=== PATIENT | male | born 1955 | race American Indian/Alaskan Native ===

== ENCOUNTER 2018-04-01 15:35 | Emergency (ER) | payer MEDICARE ==
[2018-04-01 15:35] VITALS: BMI 24.4
[2018-04-01 15:56] VITALS: TEMP 97.3
[2018-04-01 16:56] LABS: BASO # 0.1 K/uL (0.0-0.2); BASO % 1.1 % (0.0-2.0); EOS # 0.1 K/uL (0.0-0.7); EOS % 1.7 % (0.0-4.0); HEMOGLOBIN 12.8 g/dL (12.0-18.0); LYMPH # 1.5 K/uL (1.0-4.3); LYMPH % 28.3 % (20.0-40.0); MEAN CELL VOLUME 91.6 fL (80.0-94.0); MEAN CORPUSCULAR HEMOGLOBIN 29.8 pg (27.0-31.0); MEAN CORPUSCULAR HGB CONC 32.6 g/dL (33.0-37.0); MEAN PLATELET VOLUME 7.7 fL (7.2-11.7); MONO # 0.3 K/uL (0.0-0.8); MONO % 5.6 % (0.0-10.0); NEUT # 3.4 K/uL (1.8-7.0); NEUT % 63.3 % (50.0-75.0); NRBC % 0.1 % (0.0-2.0); RBC 4.3 Mil/uL (4.40-5.90); WHITE BLOOD COUNT 5.4 K/uL (4.8-10.8)
[2018-04-01 17:04] LABS: INR 1.1; PARTIAL THROMBOPLASTIN TIME 23 SECONDS (21-34)
[2018-04-01 17:09] LABS: D DIMER < 200 ng/mlDDU (0-243)
[2018-04-01 17:32] LABS: ALB/GLOB RATIO 1.2 (1.0-2.1); BLOOD UREA NITROGEN 20 mg/dL (9-20); CALCIUM 9.5 mg/dl (8.6-10.4); GFR NON-AFRICAN AMERICAN > 60
[2018-04-01 17:41] LABS: B-TYPE NATRIURETIC PEPTIDE 29.2 pg/mL (0-900)
--- NOTE | 2018-04-01 17:44 | RAD ---
HISTORY: SOB COMPARISON: Lung screening CT performed 10/09/17 TECHNIQUE: Chest, one view. FINDINGS: LUNGS: Emphysematous changes. Upper lobe bulla. Mild basilar atelectasis. Right middle lobe nodule seen on CT performed 10/09/17 not well appreciated by x-ray. Please note that chest x-ray has limited sensitivity for the detection of pulmonary masses. PLEURA: No significant pleural effusion identified. No definite pneumothorax . CARDIOVASCULAR: Heart size appears within normal limits. No significant atherosclerotic calcification present. OSSEOUS STRUCTURES: No acute osseous abnormality identified. VISUALIZED UPPER ABDOMEN: Unremarkable. OTHER FINDINGS: None. IMPRESSION: Emphysematous changes. Upper lobe bulla. Mild basilar atelectasis. Right middle lobe nodule seen on CT performed 10/09/17 not well appreciated by x-ray.
[2018-04-01 17:48] LABS: SQUAMOUS EPITHIAL < 1 /hpf (0-5); URINE BILIRUBIN NEGATIVE (NEGATIVE); URINE BLOOD NEGATIVE (NEGATIVE); URINE CLARITY Clear (Clear); URINE COLOR Yellow (YELLOW); URINE GLUCOSE (UA) NORMAL (Normal); URINE LEUKOCYTE ESTERASE NEG Leu/uL (Negative); URINE PROTEIN NEGATIVE (NEGATIVE); URINE UROBILINOGEN NORMAL mg/dL (0.2-1.0)
[2018-04-01 17:53] LABS: ALT/SGPT 20 U/L (21-72); AST/SGOT 22 U/L (17-59)
[2018-04-01] MEDS ORDERED: Iodixanol 320 MG/ML 100 ML BOTTLE IV ONE (17:58)
--- NOTE | 2018-04-01 18:23 | C.PDOC ---
History Of Present Illness 63 year old male presents to the ED BIBA complaining of lower back pain that shoots up his spine. Patient was initially ambulatory in the ED, coherent and not in pain. When I went to evaluate patient, he was unresponsive with deviated gaze, pinpoint pupils, and unresponsive to sternal rub. Finger stick was done, blood glucose was 144. As patient's pockets were checked, patient became conversant and responsive. He is currently on a strict Percocet regimen and sees multiple pain managements. Time Seen by Provider: 04/01/18 16:33 Chief Complaint (Nursing): Back Pain History Per: Patient History/Exam Limitations: no limitations Current Symptoms Are (Timing): Still Present Quality Of Discomfort: "Pain" Previous Symptoms: Back Pain Associated Symptoms: None Past Medical History Reviewed: Historical Data, Nursing Documentation, Vital Signs Vital Signs: Last Vital Signs Temp 97.3 F L 04/01/18 15:52 Pulse 73 04/01/18 15:52 Resp 34 H 04/01/18 15:52 BP 119/68 04/01/18 15:52 Pulse Ox 100 04/01/18 15:52 - Medical History PMH: Chronic Pain (+Left leg pain) Surgical History: No Surg Hx - [facility] Procedures ENDO RECTUM POLYPECTOMY (09/04/12) Family History: States: No Known Family Hx - Social History Hx Alcohol Use: Yes Hx Substance Use: No - Immunization History Hx Tetanus Toxoid Vaccination: No Hx Influenza Vaccination: No Hx Pneumococcal Vaccination: No Review Of Systems Except As Marked, All Systems Reviewed And Found Negative. 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 ), left: Normal Inspection Nose: Normal Oral Mucosa: Moist Neck: Supple Chest: Symmetrical Cardiovascular: Rhythm Regular Respiratory: Normal Breath Sounds, No Rales, No Rhonchi, No Wheezing Gastrointestinal/Abdominal: Soft, No Tenderness Extremity: Normal ROM Neurological/Psych: Oriented x3, Normal Speech, Normal Motor, Normal Sensation, Normal Reflexes Gait: Steady ED Course And Treatment - Laboratory Results Result Diagrams: 04/01/18 15:50 04/01/18 15:50 O2 Sat by Pulse Oximetry: 100 (RA) Pulse Ox Interpretation: Normal - Other Rad CXR X-Ray: Viewed By Me, Read By Radiologist Interpretation: IMPRESSION: Emphysematous changes. Upper lobe bulla. Mild basilar atelectasis. Right middle lobe nodule seen on CT performed 10/09/17 not well appreciated by x-ray. Medical Decision Making Medical Decision Making: Plan - EKG - Motrin 800mg PO - Bloodwork - CT head - CT chest/abd/pelvis 15 minutes after initial evaluation, patient is comfortable, argumentative, and requesting more pain medicine. [address] Holguin who has seen patient before. No radiological studies of LS spine area noted @ or [facility] radiology studies chronic lower back pain [facility] :120 tabs Sept 120 tabs Oct 184 tabs Nov 90 tabs Suspect Narc abuse/chronic pain of ? etiology normal labs here, d-dimer neg prior h/o prostate CA resolved small lung nodule on recent study, pending bx 05/02, normal CXR Defer to Chronic pain for further studies and meds Disposition Doctor Will See Patient In The: Office Counseled Patient/Family Regarding: Studies Performed, Diagnosis - Disposition Referrals: [email or web address] [Outside] [facility] [Outside] [facility] [Outside] [email or web address] [Outside] Benton Holguin MD [Staff Provider] - Maxx Anderson MD [Staff Provider] - Disposition: HOME/ ROUTINE Disposition Time: 18:28 Condition: GOOD Additional Instructions: avoid narcotics overdoses carry Narcan at all times- advise people you carry it and may spray up your nose to reverse the effects of narcotics overdose Seek refills of your meds with your chronic pain specialists Call for an appt. Prescriptions: Naloxone HCl [Narcan] 4 mg NS ONCE PRN #1 spray PRN Reason: narcotics overdose Instructions: Chronic Pain (DC), Low Back Pain (DC) Forms: [email or web address] (Thai) - Clinical Impression Clinical Impression: Low back pain, Narcotic abuse, continuous - Scribe Statement The provider has reviewed the documentation as recorded by the Dayton Chowdary All medical record entries made by the Dayton were at my direction and personally dictated by me. I have reviewed the chart and agree that the record accurately reflects my personal performance of the history, physical exam, medical decision making, and the department course for this patient. I have also personally directed, reviewed, and agree with the discharge instructions and disposition.
[2018-04-01 18:32] VITALS: BP 135/82; PULSE 69
[2018-04-01 18:33] VITALS: RESP 26
[2018-04-01 18:41] LABS: BARBITURATES, UR NEGATIVE (NEGATIVE); BENZODIAZEPINES, UR NEGATIVE (NEGATIVE); OPIATES, UR NEGATIVE (NEGATIVE); PHENCYCLIDINE, UR NEGATIVE (NEGATIVE)
[2018-04-01 19:27] VITALS: O2SAT 100
--- NOTE | 2018-04-03 12:11 | CARD ---
APPROVED REPORT Date of service: 04/01/2018 EKG Measurement Heart [id number] <Conclusion> Normal sinus rhythm Normal ECG
== END 2018-04-01 19:13 | disposition home or self-care (01) ==
LOC: C.ER 15:35
DX: M54.5 Low back pain (principal); F19.10 Other psychoactive substance abuse, uncomplicated
CPT/HCPCS: 71045; 80053; 81001; 82948; 83880; 84484; 85025; 85378; 85610; 85730; 93005; 99284; G0480

== ENCOUNTER 2018-04-29 08:38 | Day surgery (SDC) | payer MEDICARE ==
[2018-04-29] MEDS ORDERED: Midazolam 2 MG/2 ML VIAL ONE (10:19)
[2018-04-29] MEDS ORDERED: Lidocaine 2% MPF (5 ml) Inj ONE (10:19)
--- NOTE | 2018-04-29 10:49 | PCM.SURG1 ---
Surgeon's Initial Post Op Note - Surgeon's Notes Surgeon: Roosevelt Otero MD Surgical Physician Assistant: NONE Type of Anesthesia: Moderate Sedation{RN} Pre-Operative Diagnosis: Emphysema, right lung nodule Operative Findings: CT showed severe emphysema and a 2 cm right lung nodule. Post-Operative Diagnosis: Emphysema, right lung nodule Operation Performed: CT guided right lung biopsy. SIngle 20-g core specimen obtained. Specimen/Specimens Removed: 20 g core x 1 Estimated Blood Loss: EBL {In ML}: 0 Post-Op Condition: Fair Date of Surgery/Procedure: 04/29/18 Time of Surgery/Procedure: 10:45
--- NOTE | 2018-04-29 10:51 | CP.SDSHP ---
Same Day Surgery H & P - History Proposed Procedure: CT guided lung nodule biopsy Pre-Op Diagnosis: Right lung nodule - Allergies Allergies: Allergies No Known Allergies Allergy (Verified 05/22/15 11:02) - Physical Exam Mental Status: Alert & Oriented x3 Neuro: WNL Heart: WNL Lungs: WNL - Impression Impression: Pt with severe emphysema and small right lung nodule. Plan CT buided biopsy. Informed consent and risk of pneumothorax discussed with possible chest tube placement. Pt. Evaluated Today:Candidate for Anesthesia & Procedure: Yes (ASA 3 Malampati 3) Short Stay Discharge - Short Stay Discharge Admitting Diagnosis/Reason for Visit: LUNG MASS Disposition: HOME/ ROUTINE
--- NOTE | 2018-04-29 11:49 | RAD ---
Date of service: 04/29/2018 PROCEDURE: CHEST RADIOGRAPH, 1 VIEW HISTORY: Status post right lung nodule biopsy COMPARISON: None available. FINDINGS: LUNGS: Emphysematous changes right and left lungs with multiple bulla seen. PLEURA: No pneumothorax or pleural fluid seen. CARDIOVASCULAR: No aortic atherosclerotic calcification present. Normal. OSSEOUS STRUCTURES: No significant abnormalities. VISUALIZED UPPER ABDOMEN: Normal. OTHER FINDINGS: None. IMPRESSION: Pneumothorax following right lung nodule biopsy.
--- NOTE | 2018-04-29 11:51 | CT ---
PROCEDURE: Date of procedure: 04/29/2018 Procedure: 1. CT-guided lung mass biopsy, CPT [address] Guidance for biopsy, [address] Radiation: 501.74 mGy-cm Medications: The patient was sedated by anesthesiologist along with physiologic monitoring. HISTORY: Right upper lobe lung nodule TECHNIQUE: Following informed consent, the Pt's chest was marked. The Pt was placed prone on the CT table and procedure time out was performed. A noncontrast CT scan was performed. Noncontrast CT scan confirmed the presence of a 2 cm nodule. A skin localizer was placed on the patient's right back and a repeat CT scan was performed. The skin was marked, prepped, and draped in the usual sterile fashion. After the skin was anesthetized with lidocaine and the patient sedated by the anesthesiologist, a 20 gauge core needle was advanced percutaneously under direct CT guidance into the mass. Upon confirmation of needle position, one 20-gauge core specimens were obtained and sent for routine pathology. The needle was removed and a xeroform dressing was applied. A post biopsy CT scan showed no pneumothorax. IMPRESSION: CT guided core biopsy right lung nodule.
[2018-04-29] MEDS ORDERED: NALOXONE HCL 4 MG NS PRN (16:58)
[2018-04-29] MEDS ORDERED: Oxycodone/Acetaminophen 5/325 mg Tab PO SCH (17:15)
[2018-04-29] MEDS ORDERED: SULINDAC 200 MG PO SCH (22:00)
[2018-04-30] MEDS ORDERED: METAXALONE 800 MG PO SCH (10:00)
== END 2018-04-29 17:03 | disposition home or self-care (01) ==
LOC: C.SPRAD 08:38
PROVIDERS: ATTEND Radiology Vascular & Interventional Radiology
DX: R91.8 Other nonspecific abnormal finding of lung field (principal)
CPT/HCPCS: 32405; 71045; 88305; J2250; J3010

== ENCOUNTER 2018-06-25 17:05 | Observation (INO) | payer MEDICARE ==
[2018-06-25 17:34] VITALS: BMI 19.5
[2018-06-25] MEDS ORDERED: Aspirin 325 mg EC Tablets PO STA (17:43)
[2018-06-25] MEDS ORDERED: Sodium Chloride 0.9% 1,000 ML IV ONE (17:43)
[2018-06-25 18:07] LABS: BASO % 0.7 % (0.0-2.0); EOS # 0.1 K/uL (0.0-0.7); EOS % 1.2 % (0.0-4.0); HEMOGLOBIN 13.3 g/dL (12.0-18.0); LYMPH # 1.4 K/uL (1.0-4.3); LYMPH % 19.9 % (20.0-40.0); MEAN CELL VOLUME 90.2 fL (80.0-94.0); MEAN CORPUSCULAR HGB CONC 32.2 g/dL (33.0-37.0); MEAN PLATELET VOLUME 8.3 fL (7.2-11.7); MONO # 0.5 K/uL (0.0-0.8); NEUT # 4.9 K/uL (1.8-7.0); NEUT % 71.2 % (50.0-75.0); RBC 4.57 Mil/uL (4.40-5.90); RED CELL DISTRIBUTION WIDTH 14.9 % (11.5-14.5); WHITE BLOOD COUNT 6.8 K/uL (4.8-10.8)
[2018-06-25 18:13] LABS: INR 1.1; PARTIAL THROMBOPLASTIN TIME 33 SECONDS (21-34); PROTHROMBIN TIME 12.3 SECONDS (9.7-12.2)
[2018-06-25 18:16] LABS: D DIMER < 200 ng/mlDDU (0-243)
[2018-06-25] MEDS ORDERED: Aspirin 325 mg EC Tablets PO ONE (18:16)
[2018-06-25 18:23] LABS: ALB/GLOB RATIO 1.2 (1.0-2.1); ALBUMIN 4.5 g/dL (3.5-5.0); ALT/SGPT 16 U/L (21-72); AST/SGOT 33 U/L (17-59); BLOOD UREA NITROGEN 21 mg/dL (9-20); CALCIUM 10.1 mg/dl (8.6-10.4); GFR NON-AFRICAN AMERICAN > 60
[2018-06-25 18:35] LABS: B-TYPE NATRIURETIC PEPTIDE 84.6 pg/mL (0-900)
--- NOTE | 2018-06-25 18:52 | C.PDOC ---
History Of Present Illness 63 year old male presents to the ED for evaluation of a near syncopal episode. Patient reports he was at his PT for back pain when he had a near syncopal episode. Patient with past history of opioid abuse, OD symptoms even in the ED. Patient denies fever, chills, CP, SOB at this time. Time Seen by Provider: 06/25/18 17:43 Chief Complaint (Nursing): Syncope History Per: Patient History/Exam Limitations: no limitations Onset/Duration Of Symptoms: Hrs Current Symptoms Are (Timing): Still Present Number Of Syncopal Episodes: 1 Associated Symptoms Preceding Syncopal Episode: No Predromal Symptoms (Sudden Onset) Seizure Or Post-ictal Symptoms: None Fall Associated With With Symptoms: No Severity: None Recent travel outside of the [place]: No Additional History Per: Patient Past Medical History Reviewed: Historical Data, Nursing Documentation, Vital Signs Vital Signs: Last Vital Signs Temp 98.0 F 06/25/18 17:34 Pulse 70 06/25/18 17:34 Resp 18 06/25/18 17:34 BP 120/76 06/25/18 17:34 Pulse Ox 95 06/25/18 17:34 - Medical History PMH: Chronic Pain (+Left leg pain) Other PMH: narcotics abuse Surgical History: No Surg Hx - [facility] Procedures ENDO RECTUM POLYPECTOMY (09/04/12) Family History: States: Unknown Family Hx - Social History Hx Alcohol Use: Yes Hx Substance Use: No - Immunization History Hx Tetanus Toxoid Vaccination: No Hx Influenza Vaccination: No Hx Pneumococcal Vaccination: No Review Of Systems Constitutional: Negative for: Fever, Chills Eyes: Negative for: Vision Change Cardiovascular: Negative for: Chest Pain, Palpitations Respiratory: Negative for: Shortness of Breath Gastrointestinal: Negative for: Nausea, Vomiting, Abdominal Pain Skin: Negative for: Rash Neurological: Negative for: Weakness, Numbness, Headache, Dizziness Physical Exam - Physical Exam Appears: Non-toxic, No Acute Distress, Other (thin black male ) Skin: Normal Color, Warm, Dry Head: Atraumatic, Normacephalic Eye(s): bilateral: Normal Inspection Neck: Normal ROM, Supple Chest: Symmetrical Cardiovascular: Rhythm Regular Respiratory: Normal Breath Sounds, No Rales, No Rhonchi, No Wheezing Gastrointestinal/Abdominal: Soft, No Tenderness, No Guarding, No Rebound Extremity: Normal ROM, No Tenderness, No Swelling Neurological/Psych: Oriented x3, Normal Speech, Normal Cognition Gait: Steady ED Course And Treatment - Laboratory Results Result Diagrams: 06/25/18 17:55 06/25/18 17:55 Lab Results: PT 12.3 SECONDS (9.7-12.2) H 06/25/18 17:55 INR 1.1 06/25/18 17:55 APTT 33 SECONDS (21-34) 06/25/18 17:55 D-Dimer, Quantitative < 200 ng/mlDDU (0-243) 06/25/18 17:55 Troponin I < 0.0120 ng/mL (0.00-0.120) 06/25/18 17:55 NT-Pro-B Natriuret Pep 84.6 pg/mL (0-900) 06/25/18 17:55 Total Bilirubin 0.8 mg/dL (0.2-1.3) 06/25/18 17:55 AST 33 U/L (17-59) 06/25/18 17:55 ALT 16 U/L (21-72) L 06/25/18 17:55 Alkaline Phosphatase 107 U/L (38-126) 06/25/18 17:55 Total Protein 8.2 g/dL (6.3-8.3) 06/25/18 17:55 Albumin 4.5 g/dL (3.5-5.0) 06/25/18 17:55 Globulin 3.7 gm/dL (2.2-3.9) 06/25/18 17:55 Albumin/Globulin Ratio 1.2 (1.0-2.1) 06/25/18 17:55 Lab Interpretation: No Acute Changes (trop/bnp/d-dimer neg.) ECG: Interpreted By Tn ECG Rhythm: ST/T Changes (+ st elevations in anterior leads, but no reciprocal changes, no prior to compare) ECG Interpretation: Abnormal O2 Sat by Pulse Oximetry: 95 (ON RA) Pulse Ox Interpretation: Normal - Radiology CXR: Interpreted by Tn CXR Interpretation: Yes: No Acute Disease Reevaluation Time: 18:52 Reassessment Condition: Unchanged (remains asymptomatic) - Physician Consult Information Outcome Of Conversation: 1740: d/w Dr. Keane- Cardio Meat Grader- defers Code Heart now, will follow. 0: d/w Dr. Holguin, PMD- will be on vacay- asks to adm to Hospitalists. 1945: d/w Hospitalists- defer adm as not appropriately notified of Dr. Holguin' vacation. 2015: d/w Dr. Mayers- Medicine Meat Grader- ok to tele Obs Medical Decision Making Medical Decision Making: Plan: * EKG * Labs * CXR * Aspirin 325 mg PO * IV fluids * UA EKG was noted to be abnormal, discussed with Dr. Keane at 05:40. Dr. Keane decided to not have code heart will consult. ? near syncope @ physical rehab abnormal EKG with ST elevation in anterior leads without reciprocal changes, no prior to compare. no prior card hx, but smoker 50 pk yrs 10/29 normal surveillance low-dose rad CT chest for lung pathology neg and no dilated aorta LOW susp of aortic dissection adm, [facility] Consult. h/o chronic back pain and narcotics abuse with changes in MS, even in ED, last this MD evaled 03/31 Consider continued opiate abuse pending ua/UDS @ dispo Disposition Doctor Will See Patient In The: Hospital Counseled Patient/Family Regarding: Studies Performed, Diagnosis - Disposition Disposition: HOSPITALIZED Disposition Time: 18:55 Condition: GOOD - Clinical Impression Clinical Impression: Near syncope - Scribe Statement The provider has reviewed the documentation as recorded by the Scribe Elder Fields All medical record entries made by the Scribe were at my direction and personally dictated by me. I have reviewed the chart and agree that the record accurately reflects my personal performance of the history, physical exam, medical decision making, and the department course for this patient. I have also personally directed, reviewed, and agree with the discharge instructions and disposition.
--- NOTE | 2018-06-25 21:58 | CP.PCM.HP ---
History of Present Illness - History of Present Illness History of Present Illness: H&P for Dr. Mayers 63 M w/ PMhx of chronic back pain presents to ED following a near syncopal episode. patient states he was at his regular physical therapy session and when he stood up he had a sudden episode of dizziness, palpation, and sweating. Pt sat immediately down and stated symptoms resolved. Patient brought to ED where symptoms continued to be resolved. In ED an EKG was performed indicating ST elevations in anterior lateral leads (V3, V4). Per ED, cardiology states EKG changes in lieu of no chest pain & along with chronic pain medication, code heart is not warranted at this time. Pt denies sick contacts and recent travel history. Patient on medications for back pain including opiods. ROS: At time of examination patient denies headaches, vision changes, chest pain, N/V, difficultly breathing, abdominal pain, lower extremity swelling, fevers, chills. PMD: Dr. Holguin PMhx: Chronic back pain, congenital R eye blindness Meds: See EMR Allergies: NKDA PSHx: Lung biopsy - benign FHx: Father -colon cancer, , mother - throat cancer, SHx: Admits to 1 pack per week for 40 weeks, drinks socially, denies illicit drug use, requires cane to ambulate Present on Admission - Present on Admission Any Indicators Present on Admission: No History of DVT/PE: No History of Uncontrolled Diabetes: No Urinary Catheter: No Decubitus Ulcer Present: No Review of Systems - Constitutional Constitutional: absent: Anorexia, Chills - EENT Eyes: absent: Blurred Vision, Change in Vision Ears: absent: Ear Discharge Nose/Mouth/Throat: absent: Nasal Congestion, Nasal Discharge - Cardiovascular Cardiovascular: absent: Chest Pain, Chest Pain at Rest, Dyspnea on Exertion, Leg Edema - Respiratory Respiratory: absent: Cough, Dyspnea - Gastrointestinal Gastrointestinal: absent: Abdominal Pain, Constipation - Genitourinary Genitourinary: absent: Change in Urinary Stream - Musculoskeletal Musculoskeletal: absent: Arthralgias, Muscle Weakness - Integumentary Integumentary: absent: Lesions - Neurological Neurological: absent: Headaches, Tremor, Vertigo - Endocrine Endocrine: absent: Deepening of Voice, Flushing Past Patient History - Infectious Disease Hx of Infectious Diseases: None - Past Social History Smoking Status: Light Smoker < 10 Cigarettes Daily - HEMATOLOGICAL/ONCOLOGICAL Hx Cancer: Yes (Prostate and Lung) - MUSCULOSKELETAL/RHEUMATOLOGICAL Hx Back Pain: Yes Hx Herniated Disk: Yes - PSYCHIATRIC Hx Substance Use: No - ANESTHESIA Hx Anesthesia: No Meds Allergies/Adverse Reactions: Allergies Allergy/AdvReac Type Severity Reaction Status Date / Time No Known Allergies Allergy Verified 06/25/18 17:34 Physical Exam - Constitutional Appears: Non-toxic, No Acute Distress - Head Exam Head Exam: ATRAUMATIC, NORMAL INSPECTION, NORMOCEPHALIC - Eye Exam Eye Exam: EOMI, Normal appearance, PERRL Pupil Exam: NORMAL ACCOMODATION - ENT Exam ENT Exam: Mucous Membranes Moist - Neck Exam Neck exam: Positive for: Normal Inspection - Respiratory Exam Respiratory Exam: Clear to Auscultation Bilateral, NORMAL BREATHING PATTERN. absent: Rales, Rhonchi, Wheezes - Cardiovascular Exam Cardiovascular Exam: +S1, +S2. absent: JVD, Systolic Murmur - GI/Abdominal Exam GI & Abdominal Exam: Normal Bowel Sounds, Soft. absent: Distended, Guarding - Extremities Exam Extremities exam: Positive for: full ROM, normal inspection. Negative for: calf tenderness, pedal edema - Back Exam Back exam: paraspinal tenderness. absent: CVA tenderness (L), CVA tenderness (R) Additional comments: L knee leg brace Blue bandages on back, patient states it helps relieve the pain - Neurological Exam Neurological exam: Alert, Oriented x3 - Psychiatric Exam Psychiatric exam: Normal Affect, Normal Mood - Skin Skin Exam: Normal Color, Warm Results - Vital Signs Recent Vital Signs: Last Vital Signs Temp 97.6 F 06/25/18 21:52 Pulse 74 06/25/18 21:52 Resp 18 06/25/18 21:52 BP 161/87 H 06/25/18 21:52 Pulse Ox 100 06/25/18 21:52 - Labs Result Diagrams: 06/25/18 17:55 06/25/18 17:55 Labs: Laboratory Results - last 24 hr 06/25/18 06/25/18 06/25/18 17:29 17:55 17:55 WBC 6.8 RBC 4.57 Hgb 13.3 Hct 41.2 MCV 90.2 MCH 29.0 MCHC 32.2 L RDW 14.9 H Plt Count 258 MPV 8.3 Neut % (Auto) 71.2 Lymph % (Auto) 19.9 L Colbert % (Auto) 7.0 Eos % (Auto) 1.2 Baso % (Auto) 0.7 Neut # (Auto) 4.9 Lymph # (Auto) 1.4 Colbert # (Auto) 0.5 Eos # (Auto) 0.1 Baso # (Auto) 0.0 PT INR APTT D-Dimer, Quantitative Sodium 139 Potassium 4.4 Chloride 100 Carbon Dioxide 30 Anion Gap 14 BUN 21 H Creatinine 0.9 Est GFR ( Amer) > 60 Est GFR (Non-Af Amer) > 60 POC Glucose (mg/dL) 94 Random Glucose 84 Calcium 10.1 Total Bilirubin 0.8 AST 33 ALT 16 L Alkaline Phosphatase 107 Troponin I < 0.0120 NT-Pro-B Natriuret Pep 84.6 Total Protein 8.2 Albumin 4.5 Globulin 3.7 Albumin/Globulin Ratio 1.2 06/25/18 17:55 WBC RBC Hgb Hct MCV MCH MCHC RDW Plt Count MPV Neut % (Auto) Lymph % (Auto) Colbert % (Auto) Eos % (Auto) Baso % (Auto) Neut # (Auto) Lymph # (Auto) Colbert # (Auto) Eos # (Auto) Baso # (Auto) PT 12.3 H INR 1.1 APTT 33 D-Dimer, Quantitative < 200 Sodium Potassium Chloride Carbon Dioxide Anion Gap BUN Creatinine Est GFR ( Amer) Est GFR (Non-Af Amer) POC Glucose (mg/dL) Random Glucose Calcium Total Bilirubin AST ALT Alkaline Phosphatase Troponin I NT-Pro-B Natriuret Pep Total Protein Albumin Globulin Albumin/Globulin Ratio Assessment & Plan - Assessment and Plan (Free Text) Assessment: 63 M w/ PMhx of chronic back pain, presents to ED for near syncopal episode Plan: Near syncopal episode - UDS + for cocaine - D- dimmer negative - Initial MILTON negative, EKG indicative of ST elevations in anterior lateral leads, patient currently asymptomatic - Will r/o ACS - Trend MILTON, & EKGs Chronic back pain - patient currently does not complain of any medications - will monitor patient for pain PPx - Heart healthy diet - DVT: heparin, SCDs -
[2018-06-25 22:31] LABS: URINE BILIRUBIN NEGATIVE (NEGATIVE); URINE BLOOD NEGATIVE (NEGATIVE); URINE CLARITY Clear (Clear); URINE COLOR Yellow (YELLOW); URINE GLUCOSE (UA) NORMAL (Normal); URINE HYALINE CAST 0-2 /lpf (0-2); URINE LEUKOCYTE ESTERASE NEG Leu/uL (Negative); URINE PROTEIN NEGATIVE (NEGATIVE); URINE UROBILINOGEN NORMAL mg/dL (0.2-1.0)
[2018-06-25 22:42] LABS: BARBITURATES, UR NEGATIVE (NEGATIVE); BENZODIAZEPINES, UR NEGATIVE (NEGATIVE); OPIATES, UR NEGATIVE (NEGATIVE); PHENCYCLIDINE, UR NEGATIVE (NEGATIVE)
[2018-06-25 22:54] LABS: CK-MB 4.35 ng/mL (0.0-3.38)
[2018-06-26] MEDS ORDERED: Heparin25000 units/250ml 1/2NS 25,000 UNITS/250 ML BAG IV PRN ×3 (01:51→14:15)
[2018-06-26] MEDS ORDERED: Nitroglycerin 2% Ointment Foilpak UD TOP ONE (02:06)
[2018-06-26 03:15] LABS: BASO % 0.5 % (0.0-2.0); EOS # 0.2 K/uL (0.0-0.7); EOS % 3.1 % (0.0-4.0); HEMOGLOBIN 12.2 g/dL (12.0-18.0); LYMPH # 1.7 K/uL (1.0-4.3); LYMPH % 32.6 % (20.0-40.0); MEAN CELL VOLUME 90.2 fL (80.0-94.0); MEAN CORPUSCULAR HEMOGLOBIN 28.6 pg (27.0-31.0); MEAN CORPUSCULAR HGB CONC 31.7 g/dL (33.0-37.0); MEAN PLATELET VOLUME 7.9 fL (7.2-11.7); MONO # 0.4 K/uL (0.0-0.8); MONO % 7.5 % (0.0-10.0); NEUT % 56.3 % (50.0-75.0); RBC 4.28 Mil/uL (4.40-5.90); RED CELL DISTRIBUTION WIDTH 14.8 % (11.5-14.5); WHITE BLOOD COUNT 5.3 K/uL (4.8-10.8)
[2018-06-26 03:16] LABS: INR 1.2; PROTHROMBIN TIME 12.8 SECONDS (9.7-12.2)
[2018-06-26 03:42] LABS: CK-MB 3.47 ng/mL (0.0-3.38); LDL CHOLESTEROL 56 mg/dL (0-129)
[2018-06-26 04:05] LABS: ALB/GLOB RATIO 1.2 (1.0-2.1); ALBUMIN 3.8 g/dL (3.5-5.0); ALT/SGPT 22 U/L (21-72); AST/SGOT 28 U/L (17-59); BLOOD UREA NITROGEN 20 mg/dL (9-20); CALCIUM 9.6 mg/dl (8.6-10.4); GFR NON-AFRICAN AMERICAN > 60; HDL CHOLESTEROL 55 mg/dL (30-70)
[2018-06-26] MEDS: Sodium Chloride 0.45% 1,000 ML IV SCH ×2 (05:10→14:52)
--- NOTE | 2018-06-26 08:21 | RAD ---
Chest x-ray single frontal view HISTORY: Shortness of breath. COMPARISON: 04/01/2018 Findings: Mild venous congestion. Right hilar prominence. Nodular density at the left costophrenic angle likely represents confluence of shadows with ribs and vessels. Heart size within normal limits. Degenerative changes in the spine and shoulders. Impression: Mild venous congestion. Right hilar prominence. Nodular density at the left costophrenic angle likely represents confluence of shadows with ribs and vessels. Heart size within normal limits. Degenerative changes in the spine and shoulders.
--- NOTE | 2018-06-26 13:38 | CARD ---
APPROVED REPORT Date of service: 06/26/2018 EKG Measurement Heart [id number] <Conclusion> Normal sinus rhythm ST & T wave abnormality, consider lateral ischemia Abnormal ECG
--- NOTE | 2018-06-26 13:39 | CARD ---
APPROVED REPORT Date of service: 06/25/2018 EKG Measurement Heart [id number] <Conclusion> Normal sinus rhythm ST elevation, consider anterolateral injury or acute infarct ACUTE DC / STEMI Abnormal ECG
--- NOTE | 2018-06-26 13:39 | CARD ---
APPROVED REPORT Date of service: 06/25/2018 EKG Measurement Heart [id number] <Conclusion> Normal sinus rhythm ST elevation, consider lateral injury or acute infarct ACUTE NE / STEMI Abnormal ECG
--- NOTE | 2018-06-26 15:59 | CP.PCM.PN ---
Subjective - Date & Time of Evaluation Date of Evaluation: 06/26/18 Time of Evaluation: 15:56 - Subjective Subjective: Medicine Note for Dr. Mayers's Service Patient was seen and examined at bedside. Patient denied any current dizziness, shortness of breath, or chest pain. Patient denied any illicit drug use, despite positive UDS for cocaine. Patient willing to repeat testing. Objective - Vital Signs/Intake and Output Vital Signs (last 24 hours): Temp Pulse Resp BP Pulse Ox 98.1 F 71 20 107/61 96 06/26/18 08:00 06/26/18 08:00 06/26/18 08:00 06/26/18 08:00 06/26/18 15:43 - Medications Medications: Current Medications Aspirin (Aspirin Chewable) 81 mg PO DAILY [facility] Last Admin: 06/26/18 12:24 Dose: 81 mg Clopidogrel Bisulfate (Plavix) 75 mg PO DAILY [facility] Last Admin: 06/26/18 12:24 Dose: 75 mg Sodium Chloride (Sodium Chloride 0.45%) 1,000 mls @ 80 mls/hr IV .[id number] [facility] Last Admin: 06/26/18 14:52 Dose: 80 mls/hr Heparin Sodium/Sodium Chloride (Heparin 30320 Units/250ml 1/2 Normal Saline) 25,000 units in 250 mls @ 8.001 mls/hr IV .Q24H PRN; Protocol PRN Reason: ADJUST RATE PER PROTOCOL Last Admin: 06/26/18 14:15 Dose: 14 units/kg/hr, 8.001 mls/hr Pantoprazole Sodium (Protonix Inj) 40 mg IVP DAILY [facility] Last Admin: 06/26/18 12:24 Dose: 40 mg Rosuvastatin Calcium (Crestor) 40 mg PO HS [facility] - Labs Labs: 06/26/18 03:07 06/26/18 03:07 PT 12.8 SECONDS (9.7-12.2) H 06/26/18 03:07 INR 1.2 06/26/18 03:07 APTT 39 SECONDS (21-34) H D 06/26/18 12:46 - Constitutional Appears: No Acute Distress - Head Exam Head Exam: NORMAL INSPECTION, NORMOCEPHALIC - Eye Exam Eye Exam: EOMI, Normal appearance, PERRL Pupil Exam: NORMAL ACCOMODATION - ENT Exam ENT Exam: Mucous Membranes Moist - Respiratory Exam Respiratory Exam: Clear to Ausculation Bilateral, NORMAL BREATHING PATTERN. absent: Decreased Breath Sounds, Rhonchi, Wheezes - Cardiovascular Exam Cardiovascular Exam: REGULAR RHYTHM, +S1, +S2 - GI/Abdominal Exam GI & Abdominal Exam: Soft, Normal Bowel Sounds. absent: Distended, Tenderness - Extremities Exam Extremities Exam: Normal Inspection. absent: Pedal Edema, Tenderness - Neurological Exam Neurological Exam: Alert, Awake, Oriented x3 - Psychiatric Exam Psychiatric exam: Normal Affect, Normal Mood - Skin Skin Exam: Dry, Intact, Normal Color, Warm Assessment and Plan - Assessment and Plan (Free Text) Plan: Syncope Chest Pain r/o ACS Cardiology consulted - Dr. Keane Imaging: Patient asymptomatic throughout entire admission - Initial EKG: - Repeat EKG: new T wave inversions in lateral leads w/ persistent anterior ST elevations - ECHO: ordered, pending Management: - All Trops negative, CKMB increasing, in addition to EKG changes - Cardiac Cath 06/26/18 - evening - AVOID BETA BLOCKERS IN LIEU OF UDS POSITIVE FOR COCAINE - Started on ASA 81 mg, Plavix 75 mg daily, Crestor 40mg PO QHS - Heparin Drip Chronic Back Pain Cocaine Use - Initial UDS - positive - Will repeat as patient denied ANY illicit drug use Prophylactic Measures - GI PPX: Protonix - DVT PPX: SCDs, Heparin drip Disposition: Pending results of Catherization. DW Dr. Mayers, Magaly Cao DO, PGY2
[2018-06-26] MEDS ORDERED: Nitroglycerin 50mg in D5W 50 MG/250 ML BOTTLE IV ONE (17:46)
[2018-06-26] MEDS ORDERED: Verapamil 2 ML ONE (17:46)
[2018-06-26] MEDS ORDERED: Lidocaine 1% 20 MG/2 ML PF AMP ONE (17:54)
[2018-06-26] MEDS ORDERED: Midazolam 2 MG/2 ML VIAL ONE (18:40)
[2018-06-26] MEDS ORDERED: Iodixanol 320 MG/ML 100 ML BOTTLE IV ONE (18:40)
--- NOTE | 2018-06-26 19:20 | CP.PCM.PN ---
Subjective - Date & Time of Evaluation Date of Evaluation: 06/26/18 Time of Evaluation: 19:18 - Subjective Subjective: Patient s/p cath Normal Coronaries EF 55% Please check ECHO prior to discharge Resume diet OOB to ambulate after 9pm tonight No b blockers. patient tested positive for cocine medical management Objective - Vital Signs/Intake and Output Vital Signs (last 24 hours): Temp Pulse Resp BP Pulse Ox 98.0 F 75 20 104/61 96 06/26/18 15:00 06/26/18 15:00 06/26/18 15:00 06/26/18 15:00 06/26/18 15:43 Intake and Output: 06/26/18 06/27/18 18:59 06:59 Intake Total 56 Balance 56 - Medications Medications: Current Medications Aspirin (Aspirin Chewable) 81 mg PO DAILY [facility] Last Admin: 06/26/18 12:24 Dose: 81 mg Clopidogrel Bisulfate (Plavix) 75 mg PO DAILY [facility] Last Admin: 06/26/18 12:24 Dose: 75 mg Sodium Chloride (Sodium Chloride 0.45%) 1,000 mls @ 80 mls/hr IV .[id number] [facility] Last Admin: 06/26/18 14:52 Dose: 80 mls/hr Heparin Sodium/Sodium Chloride (Heparin 41502 Units/250ml 1/2 Normal Saline) 25,000 units in 250 mls @ 8.001 mls/hr IV .Q24H PRN; Protocol PRN Reason: ADJUST RATE PER PROTOCOL Last Admin: 06/26/18 14:15 Dose: 14 units/kg/hr, 8.001 mls/hr Pantoprazole Sodium (Protonix Inj) 40 mg IVP DAILY [facility] Last Admin: 06/26/18 12:24 Dose: 40 mg Rosuvastatin Calcium (Crestor) 40 mg PO HS [facility] - Labs Labs: 06/26/18 03:07 06/26/18 03:07 PT 12.8 SECONDS (9.7-12.2) H 06/26/18 03:07 INR 1.2 06/26/18 03:07 APTT 39 SECONDS (21-34) H D 06/26/18 12:46
[2018-06-26] MEDS ORDERED: Sodium Chloride 0.9% 1,000 ML IV SCH (19:45)
[2018-06-27] MEDS: Sodium Chloride 0.45% 1,000 ML IV SCH ×3 (03:00→20:19)
[2018-06-27 03:09] LABS: BARBITURATES, UR NEGATIVE (NEGATIVE); BENZODIAZEPINES, UR NEGATIVE (NEGATIVE); OPIATES, UR NEGATIVE (NEGATIVE); PHENCYCLIDINE, UR NEGATIVE (NEGATIVE)
[2018-06-27 06:43] LABS: BASO % 0.6 % (0.0-2.0); EOS # 0.2 K/uL (0.0-0.7); EOS % 3.6 % (0.0-4.0); HEMOGLOBIN 11.6 g/dL (12.0-18.0); LYMPH # 1.7 K/uL (1.0-4.3); LYMPH % 37.4 % (20.0-40.0); MEAN CELL VOLUME 90.1 fL (80.0-94.0); MEAN CORPUSCULAR HEMOGLOBIN 28.9 pg (27.0-31.0); MEAN CORPUSCULAR HGB CONC 32.1 g/dL (33.0-37.0); MEAN PLATELET VOLUME 7.9 fL (7.2-11.7); MONO # 0.4 K/uL (0.0-0.8); MONO % 8.5 % (0.0-10.0); NEUT # 2.2 K/uL (1.8-7.0); NEUT % 49.9 % (50.0-75.0); RBC 4.01 Mil/uL (4.40-5.90); RED CELL DISTRIBUTION WIDTH 14.9 % (11.5-14.5); WHITE BLOOD COUNT 4.5 K/uL (4.8-10.8)
[2018-06-27 07:26] LABS: ALB/GLOB RATIO 1.2 (1.0-2.1); ALBUMIN 3.2 g/dL (3.5-5.0); ALT/SGPT 10 U/L (21-72); AST/SGOT 25 U/L (17-59); BLOOD UREA NITROGEN 14 mg/dL (9-20); CALCIUM 9.3 mg/dl (8.6-10.4); GFR NON-AFRICAN AMERICAN > 60
--- NOTE | 2018-06-27 13:55 | CP.PCM.PN ---
Subjective - Date & Time of Evaluation Date of Evaluation: 06/27/18 Time of Evaluation: 13:52 - Subjective Subjective: Medicine Note for Dr. Mayers's Service Patient was seen and examined at bedside. Patient denied any current dizziness, shortness of breath, or chest pain. Patient reports he is feeling well. No pain or bleeding at catherization site. Objective - Vital Signs/Intake and Output Vital Signs (last 24 hours): Temp Pulse Resp BP Pulse Ox 98.0 F 72 20 130/72 97 06/27/18 07:15 06/27/18 07:15 06/27/18 07:15 06/27/18 07:15 06/27/18 07:15 Intake and Output: 06/27/18 06/27/18 06:59 18:59 Intake Total 1846 Output Total 1000 Balance 846 - Medications Medications: Current Medications Aspirin (Aspirin Chewable) 81 mg PO DAILY [facility] Last Admin: 06/27/18 10:04 Dose: 81 mg Clopidogrel Bisulfate (Plavix) 75 mg PO DAILY [facility] Last Admin: 06/27/18 10:05 Dose: 75 mg Heparin Sodium (Porcine) (Heparin) 5,000 units SC Q12 [facility] Last Admin: 06/27/18 10:05 Dose: 5,000 units Sodium Chloride (Sodium Chloride 0.45%) 1,000 mls @ 80 mls/hr IV .[id number] [facility] Last Admin: 06/27/18 03:00 Dose: Not Given Pantoprazole Sodium (Protonix Inj) 40 mg IVP DAILY [facility] Last Admin: 06/27/18 10:05 Dose: 40 mg Rosuvastatin Calcium (Crestor) 40 mg PO HS [facility] Last Admin: 06/26/18 22:35 Dose: 40 mg - Labs Labs: 06/27/18 06:35 06/27/18 06:35 PT 12.8 SECONDS (9.7-12.2) H 06/26/18 03:07 INR 1.2 06/26/18 03:07 APTT 86 SECONDS (21-34) H D 06/27/18 03:20 - Additional Findings Additional findings: - Constitutional Appears: No Acute Distress - Head Exam Head Exam: NORMAL INSPECTION, NORMOCEPHALIC - Eye Exam Eye Exam: EOMI, Normal appearance, PERRL Pupil Exam: NORMAL ACCOMODATION - ENT Exam ENT Exam: Mucous Membranes Moist - Respiratory Exam Respiratory Exam: Clear to Ausculation Bilateral, NORMAL BREATHING PATTERN. absent: Decreased Breath Sounds, Rhonchi, Wheezes - Cardiovascular Exam Cardiovascular Exam: REGULAR RHYTHM, +S1, +S2 - GI/Abdominal Exam GI & Abdominal Exam: Soft, Normal Bowel Sounds. absent: Distended, Tenderness - Extremities Exam Extremities Exam: Normal Inspection. absent: Pedal Edema, Tenderness - Neurological Exam Neurological Exam: Alert, Awake, Oriented x3 - Psychiatric Exam Psychiatric exam: Normal Affect, Normal Mood - Skin Skin Exam: Dry, Intact, Normal Color, Warm No bleeding noted at catherization site Assessment and Plan - Assessment and Plan (Free Text) Plan: Syncope Chest Pain r/o ACS Cardiology consulted - Dr. Keane Imaging: Patient asymptomatic throughout entire admission - Initial EKG: - Repeat EKG: new T wave inversions in lateral leads w/ persistent anterior ST elevations - ECHO: ordered, pending - S/P nonobstructive coronaries; LVEF 55% Management: - All Trops negative, CKMB increasing, in addition to EKG changes - Cardiac Cath 06/26/18 - evening - AVOID BETA BLOCKERS IN LIEU OF UDS POSITIVE FOR COCAINE - Started on ASA 81 mg, Plavix 75 mg daily, Crestor 40mg PO QHS - Heparin Drip DC'd, now Hep SC Q12 Chronic Back Pain Cocaine Use - Initial UDS - positive - Repeat UDS - positive - Spoke to at length with patient to refrain from any use Prophylactic Measures - GI PPX: Protonix - DVT PPX: SCDs, Heparin drip DC'd, now Hep SC Q12 Disposition: Pending ECHO reading by Dr. Keane, discharge 06/28/18. DW Dr. Mayers, Magaly Cao DO, PGY2
--- NOTE | 2018-06-27 22:13 | CP.PCM.CON ---
History of Present Illness - History of Present Illness History of Present Illness: CC: Near syncopial episode, Abnormal EKG 63 M w/ PMhx of chronic back pain presents to ED following a near syncopal episode. patient states he was at his regular physical therapy session and when he stood up he had a sudden episode of dizziness, palpation, and sweating. Pt sat immediately down and stated symptoms resolved. Patient brought to ED where symptoms continued to be resolved. In ED an EKG was performed indicating ST elevations in anterior lateral leads (V3, V4). Per ED, cardiology states EKG changes in lieu of no chest pain & along with chronic pain medication, code heart is not warranted at this time. Pt denies sick contacts and recent travel history. Patient on medications for back pain including opiods. ROS: At time of examination patient denies headaches, vision changes, chest pain, N/V, difficultly breathing, abdominal pain, lower extremity swelling, fevers, chills. PMD: Dr. Holguin PMhx: Chronic back pain, congenital R eye blindness Meds: See EMR Allergies: NKDA PSHx: Lung biopsy - benign FHx: Father -colon cancer, , mother - throat cancer, SHx: Admits to 1 pack per week for 40 weeks, drinks socially, denies illicit drug use, requires cane to ambulate Present on Admission - Present on Admission Any Indicators Present on Admission: No History of DVT/PE: No History of Uncontrolled Diabetes: No Urinary Catheter: No Decubitus Ulcer Present: No Review of Systems - Constitutional Constitutional: absent: Anorexia, Chills - EENT Eyes: absent: Blurred Vision, Change in Vision Ears: absent: Ear Discharge Nose/Mouth/Throat: absent: Nasal Congestion, Nasal Discharge - Cardiovascular Cardiovascular: absent: Chest Pain, Chest Pain at Rest, Dyspnea on Exertion, Leg Edema - Respiratory Respiratory: absent: Cough, Dyspnea - Gastrointestinal Gastrointestinal: absent: Abdominal Pain, Constipation - Genitourinary Genitourinary: absent: Change in Urinary Stream - Musculoskeletal Musculoskeletal: absent: Arthralgias, Muscle Weakness - Integumentary Integumentary: absent: Lesions - Neurological Neurological: absent: Headaches, Tremor, Vertigo - Endocrine Endocrine: absent: Deepening of Voice, Flushing Past Patient History - Infectious Disease Hx of Infectious Diseases: None - Past Social History Smoking Status: Light Smoker < 10 Cigarettes Daily - HEMATOLOGICAL/ONCOLOGICAL Hx Cancer: Yes (Prostate and Lung) - MUSCULOSKELETAL/RHEUMATOLOGICAL Hx Back Pain: Yes Hx Herniated Disk: Yes - PSYCHIATRIC Hx Substance Use: No - ANESTHESIA Hx Anesthesia: No Meds Allergies/Adverse Reactions: Allergies Allergy/AdvReac Type Severity Reaction Status Date / Time No Known Allergies Allergy Verified 06/25/18 17:34 Physical Exam - Constitutional Appears: Non-toxic, No Acute Distress - Head Exam Head Exam: ATRAUMATIC, NORMAL INSPECTION, NORMOCEPHALIC - Eye Exam Eye Exam: EOMI, Normal appearance, PERRL Pupil Exam: NORMAL ACCOMODATION - ENT Exam ENT Exam: Mucous Membranes Moist - Neck Exam Neck exam: Positive for: Normal Inspection - Respiratory Exam Respiratory Exam: Clear to Auscultation Bilateral, NORMAL BREATHING PATTERN. absent: Rales, Rhonchi, Wheezes - Cardiovascular Exam Cardiovascular Exam: +S1, +S2. absent: JVD, Systolic Murmur - GI/Abdominal Exam GI & Abdominal Exam: Normal Bowel Sounds, Soft. absent: Distended, Guarding - Extremities Exam Extremities exam: Positive for: full ROM, normal inspection. Negative for: calf tenderness, pedal edema - Back Exam Back exam: paraspinal tenderness. absent: CVA tenderness (L), CVA tenderness (R) Additional comments: L knee leg brace Blue bandages on back, patient states it helps relieve the pain - Neurological Exam Neurological exam: Alert, Oriented x3 - Psychiatric Exam Psychiatric exam: Normal Affect, Normal Mood - Skin Skin Exam: Normal Color, Warm Results - Vital Signs Recent Vital Signs: Last Vital Signs Temp 97.6 F 06/25/18 21:52 Pulse 74 06/25/18 21:52 Resp 18 06/25/18 21:52 BP 161/87 H 06/25/18 21:52 Pulse Ox 100 06/25/18 21:52 - Labs Result Diagrams: 06/25/18 17:55 06/25/18 17:55 Labs: Laboratory Results - last 24 hr 06/25/18 06/25/18 06/25/18 17:29 17:55 17:55 WBC 6.8 RBC 4.57 Hgb 13.3 Hct 41.2 MCV 90.2 MCH 29.0 MCHC 32.2 L RDW 14.9 H Plt Count 258 MPV 8.3 Neut % (Auto) 71.2 Lymph % (Auto) 19.9 L Victoria % (Auto) 7.0 Eos % (Auto) 1.2 Baso % (Auto) 0.7 Neut # (Auto) 4.9 Lymph # (Auto) 1.4 Victoria # (Auto) 0.5 Eos # (Auto) 0.1 Baso # (Auto) 0.0 PT INR APTT D-Dimer, Quantitative Sodium 139 Potassium 4.4 Chloride 100 Carbon Dioxide 30 Anion Gap 14 BUN 21 H Creatinine 0.9 Est GFR ( Amer) > 60 Est GFR (Non-Af Amer) > 60 POC Glucose (mg/dL) 94 Random Glucose 84 Calcium 10.1 Total Bilirubin 0.8 AST 33 ALT 16 L Alkaline Phosphatase 107 Troponin I < 0.0120 NT-Pro-B Natriuret Pep 84.6 Total Protein 8.2 Albumin 4.5 Globulin 3.7 Albumin/Globulin Ratio 1.2 06/25/18 17:55 WBC RBC Hgb Hct MCV MCH MCHC RDW Plt Count MPV Neut % (Auto) Lymph % (Auto) Victoria % (Auto) Eos % (Auto) Baso % (Auto) Neut # (Auto) Lymph # (Auto) Victoria # (Auto) Eos # (Auto) Baso # (Auto) PT 12.3 H INR 1.1 APTT 33 D-Dimer, Quantitative < 200 Sodium Potassium Chloride Carbon Dioxide Anion Gap BUN Creatinine Est GFR ( Amer) Est GFR (Non-Af Amer) POC Glucose (mg/dL) Random Glucose Calcium Total Bilirubin AST ALT Alkaline Phosphatase Troponin I NT-Pro-B Natriuret Pep Total Protein Albumin Globulin Albumin/Globulin Ratio Assessment & Plan - Assessment and Plan (Free Text) Assessment: 63 M w/ PMhx of chronic back pain, presents to ED for near syncopal episode Plan: Near syncopal episode - UDS + for cocaine - D- dimmer negative - Initial MILTON negative, EKG indicative of ST elevations in anterior lateral leads, patient currently asymptomatic - Will r/o ACS - Trend MILTON, & EKGs Chronic back pain - patient currently does not complain of any medications - will monitor patient for pain PPx - Heart healthy diet - DVT: heparin, SCDs For Cardiac cath n am - Past Patient History - Infectious Disease Hx of Infectious Diseases: None - Past Social History Smoking Status: Light Smoker < 10 Cigarettes Daily - HEMATOLOGICAL/ONCOLOGICAL Hx Cancer: Yes (Prostate and Lung) - MUSCULOSKELETAL/RHEUMATOLOGICAL Hx Back Pain: Yes Hx Herniated Disk: Yes - PSYCHIATRIC Hx Substance Use: No - ANESTHESIA Hx Anesthesia: No Meds Allergies/Adverse Reactions: Allergies Allergy/AdvReac Type Severity Reaction Status Date / Time No Known Allergies Allergy Verified 06/25/18 17:34 - Medications Medications: Current Medications Aspirin (Aspirin Chewable) 81 mg PO DAILY [facility] Last Admin: 06/27/18 10:04 Dose: 81 mg Clopidogrel Bisulfate (Plavix) 75 mg PO DAILY [facility] Last Admin: 06/27/18 10:05 Dose: 75 mg Heparin Sodium (Porcine) (Heparin) 5,000 units SC Q12 [facility] Last Admin: 06/27/18 10:05 Dose: 5,000 units Sodium Chloride (Sodium Chloride 0.45%) 1,000 mls @ 80 mls/hr IV .[id number] [facility] Last Admin: 06/27/18 20:19 Dose: 80 mls/hr Pantoprazole Sodium (Protonix Inj) 40 mg IVP DAILY [facility] Last Admin: 06/27/18 10:05 Dose: 40 mg Rosuvastatin Calcium (Crestor) 40 mg PO HS [facility] Last Admin: 06/26/18 22:35 Dose: 40 mg Results - Vital Signs Recent Vital Signs: Last Vital Signs Temp 98.3 F 06/27/18 16:00 Pulse 63 06/27/18 16:00 Resp 20 06/27/18 16:00 BP 131/68 06/27/18 16:00 Pulse Ox 95 06/27/18 16:00 - Labs Result Diagrams: 06/27/18 06:35 06/27/18 06:35 Labs: Laboratory Results - last 24 hr 06/27/18 06/27/18 06/27/18 02:42 03:20 06:35 WBC 4.5 L RBC 4.01 L Hgb 11.6 L Hct 36.2 MCV 90.1 MCH 28.9 MCHC 32.1 L RDW 14.9 H Plt Count 205 MPV 7.9 Neut % (Auto) 49.9 L Lymph % (Auto) 37.4 Victoria % (Auto) 8.5 Eos % (Auto) 3.6 Baso % (Auto) 0.6 Neut # (Auto) 2.2 Lymph # (Auto) 1.7 Victoria # (Auto) 0.4 Eos # (Auto) 0.2 Baso # (Auto) 0.0 APTT 86 H D Sodium Potassium Chloride Carbon Dioxide Anion Gap BUN Creatinine Est GFR ( Amer) Est GFR (Non-Af Amer) Random Glucose Calcium Phosphorus Magnesium Total Bilirubin AST ALT Alkaline Phosphatase Total Protein Albumin Globulin Albumin/Globulin Ratio Urine Opiates Screen Negative Urine Methadone Screen Negative Ur Barbiturates Screen Negative Ur Phencyclidine Scrn Negative Ur Amphetamines Screen Negative U Benzodiazepines Scrn Negative U Oth Cocaine Metabols Positive H U Cannabinoids Screen Negative 06/27/18 06:35 WBC RBC Hgb Hct MCV MCH MCHC RDW Plt Count MPV Neut % (Auto) Lymph % (Auto) Victoria % (Auto) Eos % (Auto) Baso % (Auto) Neut # (Auto) Lymph # (Auto) Victoria # (Auto) Eos # (Auto) Baso # (Auto) APTT Sodium 135 Potassium 3.6 Chloride 102 Carbon Dioxide 32 H Anion Gap 5 L BUN 14 Creatinine 1.2 Est GFR ( Amer) > 60 Est GFR (Non-Af Amer) > 60 Random Glucose 96 Calcium 9.3 Phosphorus 3.0 Magnesium 1.9 Total Bilirubin 0.5 AST 25 ALT 10 L D Alkaline Phosphatase 100 Total Protein 5.9 L Albumin 3.2 L Globulin 2.7 Albumin/Globulin Ratio 1.2 Urine Opiates Screen Urine Methadone Screen Ur Barbiturates Screen Ur Phencyclidine Scrn Ur Amphetamines Screen U Benzodiazepines Scrn U Oth Cocaine Metabols U Cannabinoids Screen
[2018-06-28 00:27] VITALS: BP 129/72; RESP 18; TEMP 98.1; O2SAT 97
[2018-06-28] MEDS: Sodium Chloride 0.45% 1,000 ML IV SCH (05:22)
--- NOTE | 2018-06-28 07:29 | CP.PCM.DIS ---
Provider - Provider Date of Admission: 06/25/18 20:14 Attending physician: Ang Mayers Jr, MD Consults: 06/25/18 18:56 Cardiology Consult Routine Comment: near syncope, EKG canges Consulting Provider: Jose Keane Consulting Physician: Jose Keane Reason for Consult: near syncope, EKG changes Time Spent in preparation of Discharge (in minutes): 55 Hospital Course - Lab Results Lab Results: Most Recent Lab Values WBC 4.5 K/uL (4.8-10.8) L 06/27/18 06:35 RBC 4.01 Mil/uL (4.40-5.90) L 06/27/18 06:35 Hgb 11.6 g/dL (12.0-18.0) L 06/27/18 06:35 Hct 36.2 % (35.0-51.0) 06/27/18 06:35 MCV 90.1 fL (80.0-94.0) 06/27/18 06:35 MCH 28.9 pg (27.0-31.0) 06/27/18 06:35 MCHC 32.1 g/dL (33.0-37.0) L 06/27/18 06:35 RDW 14.9 % (11.5-14.5) H 06/27/18 06:35 Plt Count 205 K/uL (130-400) 06/27/18 06:35 MPV 7.9 fL (7.2-11.7) 06/27/18 06:35 Neut % (Auto) 49.9 % (50.0-75.0) L 06/27/18 06:35 Lymph % (Auto) 37.4 % (20.0-40.0) 06/27/18 06:35 [place] % (Auto) 8.5 % (0.0-10.0) 06/27/18 06:35 Eos % (Auto) 3.6 % (0.0-4.0) 06/27/18 06:35 Baso % (Auto) 0.6 % (0.0-2.0) 06/27/18 06:35 Neut # (Auto) 2.2 K/uL (1.8-7.0) 06/27/18 06:35 Lymph # (Auto) 1.7 K/uL (1.0-4.3) 06/27/18 06:35 [place] # (Auto) 0.4 K/uL (0.0-0.8) 06/27/18 06:35 Eos # (Auto) 0.2 K/uL (0.0-0.7) 06/27/18 06:35 Baso # (Auto) 0.0 K/uL (0.0-0.2) 06/27/18 06:35 PT 12.8 SECONDS (9.7-12.2) H 06/26/18 03:07 INR 1.2 06/26/18 03:07 APTT 86 SECONDS (21-34) H D 06/27/18 03:20 D-Dimer, Quantitative < 200 ng/mlDDU (0-243) 06/25/18 17:55 Sodium 135 mmol/L (132-148) 06/27/18 06:35 Potassium 3.6 mmol/L (3.6-5.2) 06/27/18 06:35 Chloride 102 mmol/L (98-107) 06/27/18 06:35 Carbon Dioxide 32 mmol/L (22-30) H 06/27/18 06:35 Anion Gap 5 (10-20) L 06/27/18 06:35 BUN 14 mg/dL (9-20) 06/27/18 06:35 Creatinine 1.2 mg/dL (0.8-1.5) 06/27/18 06:35 Est GFR ( Amer) > 60 06/27/18 06:35 Est GFR (Non-Af Amer) > 60 06/27/18 06:35 POC Glucose (mg/dL) 94 mg/dL (65-110) 06/25/18 17:29 Random Glucose 96 mg/dL (75-110) 06/27/18 06:35 Calcium 9.3 mg/dl (8.6-10.4) 06/27/18 06:35 Phosphorus 3.0 mg/dL (2.5-4.5) 06/27/18 06:35 Magnesium 1.9 mg/dL (1.6-2.3) 06/27/18 06:35 Total Bilirubin 0.5 mg/dL (0.2-1.3) 06/27/18 06:35 AST 25 U/L (17-59) 06/27/18 06:35 ALT 10 U/L (21-72) L D 06/27/18 06:35 Alkaline Phosphatase 100 U/L (38-126) 06/27/18 06:35 Total Creatine Kinase 350 U/L (55-170) H 06/26/18 03:07 CK-MB (Mass) 3.47 ng/mL (0.0-3.38) H 06/26/18 03:07 Troponin I < 0.0120 ng/mL (0.00-0.120) 06/26/18 03:07 NT-Pro-B Natriuret Pep 84.6 pg/mL (0-900) 06/25/18 17:55 Total Protein 5.9 g/dL (6.3-8.3) L 06/27/18 06:35 Albumin 3.2 g/dL (3.5-5.0) L 06/27/18 06:35 Globulin 2.7 gm/dL (2.2-3.9) 06/27/18 06:35 Albumin/Globulin Ratio 1.2 (1.0-2.1) 06/27/18 06:35 Triglycerides 67 mg/dL (0-149) 06/26/18 03:07 Cholesterol 117 mg/dL (0-199) 06/26/18 03:07 LDL Cholesterol Direct 56 mg/dL (0-129) 06/26/18 03:07 HDL Cholesterol 55 mg/dL (30-70) 06/26/18 03:07 TSH 3rd Generation 0.75 mIU/L (0.46-4.68) 06/26/18 03:07 Urine Color Yellow (YELLOW) 06/25/18 22:06 Urine Clarity Clear (Clear) 06/25/18 22:06 Urine pH 5.0 (5.0-8.0) 06/25/18 22:06 Ur Specific [place] 1.012 (1.003-1.030) 06/25/18 22:06 Urine Protein Negative mg/dL (NEGATIVE) 06/25/18 22:06 Urine Glucose (UA) Normal mg/dL (Normal) 06/25/18 22:06 Urine Ketones 1+ mg/dL (NEGATIVE) H 06/25/18 22:06 Urine Blood Negative (NEGATIVE) 06/25/18 22:06 Urine Nitrate Negative (NEGATIVE) 06/25/18 22:06 Urine Bilirubin Negative (NEGATIVE) 06/25/18 22:06 Urine Urobilinogen Normal mg/dL (0.2-1.0) 06/25/18 22:06 Ur Leukocyte Esterase Neg [place]/uL (Negative) 06/25/18 22:06 Urine WBC (Auto) < 1 /hpf (0-5) 06/25/18 22:06 Urine RBC (Auto) < 1 /hpf (0-3) 06/25/18 22:06 Hyaline Casts 0-2 /lpf (0-2) 06/25/18 22:06 Urine Opiates Screen Negative (NEGATIVE) 06/27/18 02:42 Urine Methadone Screen Negative (NEGATIVE) 06/27/18 02:42 Ur Barbiturates Screen Negative (NEGATIVE) 06/27/18 02:42 Ur Phencyclidine Scrn Negative (NEGATIVE) 06/27/18 02:42 Ur Amphetamines Screen Negative (NEGATIVE) 06/27/18 02:42 U Benzodiazepines Scrn Negative (NEGATIVE) 06/27/18 02:42 U Oth Cocaine Metabols Positive (NEGATIVE) H 06/27/18 02:42 U Cannabinoids Screen Negative (NEGATIVE) 06/27/18 02:42 - Hospital Course Hospital Course: Upon Admission: 63 M w/ PMhx of chronic back pain presents to ED following a near syncopal episode. patient states he was at his regular physical therapy session and when he stood up he had a sudden episode of dizziness, palpation, and sweating. Pt sat immediately down and stated symptoms resolved. Patient brought to ED where symptoms continued to be resolved. In ED an EKG was performed indicating ST elevations in anterior lateral leads (V3, V4). Per ED, cardiology states EKG changes in lieu of no chest pain & along with chronic pain medication, code heart is not warranted at this time. Pt denies sick contacts and recent travel history. Patient on medications for back pain including opiods. ROS: At time of examination patient denies headaches, vision changes, chest pain, N/V, difficultly breathing, abdominal pain, lower extremity swelling, fevers, chills. PMD: Dr. Holguin PMhx: Chronic back pain, congenital R eye blindness Meds: See EMR Allergies: NKDA PSHx: Lung biopsy - benign FHx: Father -colon cancer, , mother - throat cancer, SHx: Admits to 1 pack per week for 40 weeks, drinks socially, denies illicit drug use, requires cane to ambulate Throughout Hospital Course: Syncope Chest Pain r/o ACS Cardiology consulted - Dr. Keane Imaging: Patient asymptomatic throughout entire admission - Initial EKG: - Repeat EKG: new T wave inversions in lateral leads w/ persistent anterior ST elevations - ECHO: ordered, pending - S/P nonobstructive coronaries; LVEF 55% Management: - All Trops negative, CKMB increasing, in addition to EKG changes - Cardiac Cath 06/26/18 - evening - AVOID BETA BLOCKERS IN LIEU OF UDS POSITIVE FOR COCAINE - Started on ASA 81 mg, Plavix 75 mg daily, Crestor 40mg PO QHS - Heparin Drip DC'd, now Hep SC Q12 Chronic Back Pain Cocaine Use - Initial UDS - positive - Repeat UDS - positive - Spoke to at length with patient to refrain from any use Please review EMR for full record. Discharge Exam - Head Exam Head Exam: NORMAL INSPECTION, NORMOCEPHALIC - Eye Exam Eye Exam: EOMI, Normal appearance, PERRL Pupil Exam: NORMAL ACCOMODATION - Respiratory Exam Respiratory Exam: Clear to PA & Lateral, NORMAL BREATHING PATTERN. absent: Rales, Rhonchi, Wheezes - Cardiovascular Exam Cardiovascular Exam: REGULAR RHYTHM, +S1, +S2. absent: Tachycardia, Diastolic murmur, Systolic Murmur - GI/Abdominal Exam GI & Abdominal Exam: Normal Bowel Sounds, Soft. absent: Distended, Tenderness - Extremities Exam Extremities exam: normal inspection, pedal pulses present - Neurological Exam Neurological exam: Alert, CN II-XII Intact, Oriented x3 - Psychiatric Exam Psychiatric exam: Normal Affect, Normal Mood - Skin Skin Exam: Dry, Intact, Normal Color, Warm Discharge Plan - Follow Up Plan Condition: GOOD Disposition: HOME/ ROUTINE Instructions: Heart Attack (DC), Drug Abuse and Drug Addiction (DC), Near Fainting (DC), Syncope (Fainting) (DC) Additional Instructions: Please continue taking the following medications: Aspiring 81 mg by mouth daily Plavix 75 mg by mouth daily Crestor 40 mg by mouth at night after dinner Protonix 40mg by mouth daily Please follow up with a primary care physician within 1 week. Please follow up with Dr. Keane within 1 month. Please DO NOT TAKE ANY ILLICIT DRUGS as this can affect your heart and cause similar symptoms to what you experienced. Please take care and be well! Referrals: Ang Mayers Jr., MD [Medical Doctor] - Jose Keane MD [Staff Provider] -
[2018-06-28 08:31] VITALS: PULSE 58
[2018-06-28 09:39] LABS: BASO % 0.9 % (0.0-2.0); EOS # 0.2 K/uL (0.0-0.7); EOS % 4.6 % (0.0-4.0); LYMPH # 1.9 K/uL (1.0-4.3); LYMPH % 52.3 % (20.0-40.0); MEAN CORPUSCULAR HEMOGLOBIN 29.8 pg (27.0-31.0); MEAN CORPUSCULAR HGB CONC 33.1 g/dL (33.0-37.0); MEAN PLATELET VOLUME 8.1 fL (7.2-11.7); MONO # 0.3 K/uL (0.0-0.8); MONO % 8.2 % (0.0-10.0); NEUT # 1.3 K/uL (1.8-7.0); NRBC % 0.1 % (0.0-2.0); RBC 4.37 Mil/uL (4.40-5.90); RED CELL DISTRIBUTION WIDTH 14.5 % (11.5-14.5); WHITE BLOOD COUNT 3.7 K/uL (4.8-10.8)
[2018-06-28 09:55] LABS: ALB/GLOB RATIO 1.3 (1.0-2.1); ALBUMIN 3.7 g/dL (3.5-5.0); ALT/SGPT 11 U/L (21-72); AST/SGOT 26 U/L (17-59); BLOOD UREA NITROGEN 13 mg/dL (9-20); CALCIUM 9.4 mg/dl (8.6-10.4); GFR NON-AFRICAN AMERICAN > 60
--- NOTE | 2018-06-28 11:52 | CARD ---
APPROVED REPORT Date of service: 06/27/2018 EXAM: Two-dimensional and M-mode echocardiogram with Doppler and color Doppler. Other Information Quality : GoodRhythm : INDICATION Dizziness and Vertigo Chest Pain Palpitations 2D DIMENSIONS LA [place]uz[place]03 (18-58mL) M-Mode DIMENSIONS RVDd1.52 (2.1-3.2cm)Left Atrium (MM)3.07 (2.5-4.0cm) IVSd0.88 (0.7-1.1cm)Aortic Root3.22 (2.2-3.7cm) LVDd4.52 (4.0-5.6cm)Aortic Cusp Exc.2.03 (1.5-2.0cm) PWd1.31 (0.7-1.1cm)FS (%) 46 % LVDs2.46 (2.0-3.8cm)LVEF (%)77 (>50%) Aortic Valve AoV Peak Tiskgjog381.2cm/Christ Peak GR.6mmHg Mitral Valve MV E Nwutfycb80.8cm/sMV A Wghndwwt14.2cm/sE/A ratio0.9 TDI Lateral E' Peak V11.51cm/sMedial E' Peak V9.00cm/sE/Lateral E'5.6 E/Medial E'7.2 Tricuspid Valve TR Peak Cbahwyhz071en/sTR Peak Gr.[id number] <Conclusion> Left ventricle: thickness: normal; size: normal; overall ejection fraction: 65%: diastolic filling pressures: normal Mitral valve: annulus: normal: leaflets: normal: excursion: normal; no significant trans-mitral gradient: no significant incompetence: left atrium: normal Aortic valve: leaflets: normal: excursion: normal; no significant trans-aortic gradient: No significant incompetence: aortic root: normal Right sided Structures: Pulmonary valve: normal; no significant incompetence; Tricuspid valve: normal; no significant incompetence: Intra-cardiac hemodynamics: pulmonary systolic pressures: normal; central venous pressures: normal No pericardial effusion
--- NOTE | 2018-07-06 01:01 | CARDCATH ---
PROCEDURE DATE: 06/26/2018 PROCEDURES: 1. Left heart catheterization. 2. Coronary angiogram. REFERRING PHYSICIAN: Ang Mayers MD PERFORMING PHYSICIAN: Jose Keane MD CLINICAL INDICATION: Syncopal with abnormal EKG, hypertension and chest pain. DESCRIPTION OF THE PROCEDURE: After informed consent, the patient was prepped and draped in the usual sterile fashion. A 2% lidocaine was given in the right wrist for local anesthesia. Using micropuncture technique, 6-[place] sheath was introduced into the right radial artery. A JR4 6-[place] diagnostic catheter inserted into the left ventricle across the aortic valve. LVEDP measured. Contrast injected and LV angiogram was done. Then the catheter was pulled back, gradient across the aortic valve was measured. Then, the same catheter engaged into right coronary artery. The contrast was injected and right coronary angiogram was done. Then, the catheter was exchanged to 6-[place] with [place] catheter. [place] catheter engaged into left main coronary artery. Contrast injected and left coronary angiogram was done. The patient tolerated the procedure well. Post procedure, Terumo radial band applied to right wrist with excellent hemostasis. Radiological supervision and radiological interpretation of the coronary imaging was done. FINDINGS: 1. Left main coronary artery was patent. 2. LAD and diagonal branch were patent. 3. Left circumflex and obtuse marginal branches were patent. 4. Right coronary artery dominant and patent. 5. LV ejection fraction approximately 70%. No wall motion abnormality noted. EDP is 15. No gradient across the aortic valve. IMPRESSION: 1. Normal coronaries. 2. Normal left ventricular systolic function. Recommend medical management. Jose Keane MD
== END 2018-06-28 13:08 | disposition home or self-care (01) ==
LOC: C.ER 17:05 → C.6T 20:14 → C.9E 20:50 → C.5S 21:18
PROVIDERS: ADMIT Internal Medicine; ATTEND Internal Medicine
DX: R55 Syncope and collapse (principal); H54.61 Unqualified visual loss, right eye, normal vision left eye; F17.210 Nicotine dependence, cigarettes, uncomplicated; R07.89 Other chest pain; R94.31 Abnormal electrocardiogram [ECG] [EKG]; I10 Essential (primary) hypertension
CPT/HCPCS: 36415; 71045; 80053; 80061; 81001; 82009; 82550; 82553; 82948; 83735; 83880; 84100; 84443; 84484; 84600; 85025; 85378; 85610; 85730; 93005; 93306; 93452; 93458; 96372; 96374; 96376; 99152; 99153; 99285; C1769; C1887; C1894; C9113; G0378; G0480; J1644; J2001; J2250; J3010; J7030; Q9967